=== PATIENT | male | born 1950 | race Two or more races ===

== ENCOUNTER 2025-03-07 13:57 | Outpatient (CLI) | payer OTHER | END 2025-03-07 13:59 | disposition home or self-care (01) | LOC: RAD 13:57 | PROVIDERS: ATTEND Physical Medicine & Rehabilitation | DX: M25.511 Pain in right shoulder (principal); M25.512 Pain in left shoulder ==

== ENCOUNTER 2025-05-10 14:03 | Outpatient (CLI) | payer OTHER | END 2025-05-10 14:10 | disposition home or self-care (01) | LOC: RAD 14:03 | PROVIDERS: ATTEND Physical Medicine & Rehabilitation | DX: M54.2 Cervicalgia (principal) ==